=== PATIENT | male | born 2000 | race Caucasian/White ===

== ENCOUNTER 2023-10-06 11:36 | Emergency (ER) | payer BC, SELFPAY ==
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
[2023-10-06 13:02] VITALS: BP 136/79; PULSE 73; RESP 16; TEMP 36.5; O2SAT 100
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
== END 2023-10-06 14:18 | disposition home or self-care (01) ==
PROVIDERS: Emergency Provider Nurse Practitioner; PCP Physician Assistant
DX: S46.912A Strain of unspecified muscle, fascia and tendon at shoulder and upper arm level, left arm, initial encounter (principal); V47.5XXA Car driver injured in collision with fixed or stationary object in traffic accident, initial encounter; F17.210 Nicotine dependence, cigarettes, uncomplicated
CPT/HCPCS: 73030; 99213; G0463

== ENCOUNTER → 2023-10-10 12:43 | Outpatient (CLI) | payer BC, SELFPAY ==
--- NOTE | ~2023-10-10 | XR_ITS ---
EXAMINATION:XR cervical spine 4-5V DATE: 10/10/2023 13:14 INDICATION: Neck pain TECHNIQUE: AP, lateral in neutral, flexion, extension, and odontoid views of the cervical spine are p rovided. COMPARISON: 08/10/2011 FINDINGS: Alignment is normal. No hypermobility is present with flexion or extension. The odontoid pr ocess is intact. No fracture is identified. Vertebral body heights and disk spaces are normal. Prever tebral soft tissues are normal. IMPRESSION: 1. Unremarkable cervical spine radiographs. Reviewed, dictated and finalized at location A. [employer] HELPER
== END ==
PROVIDERS: PCP Chiropractor; Visit Provider Chiropractor
DX: M54.2 Cervicalgia (principal)
CPT/HCPCS: 72050